=== PATIENT | female | born 1970 | race African-American/Black ===

== ENCOUNTER 2018-02-10 20:12 | Emergency (ER) | payer OTHER ==
[~2018-02-10] VITALS: Ht 162.6 cm; Wt 79.8 kg
[~2018-02-10 20:12] MED LIST: ALEVE220 M1 PO; ALKA-SELTZER P1 EA10; BACTRIM DS TAB1 EACH PO; CIPROFLOXACIN500 M1 PO; DIFLUCAN200 MG PO; FLAGYL500 MG PO; HYDROCHLOROTHIA25 M2 PO; IBUPROFEN 800800 MG PO; MACROBID 100 M100 M1 PO; MONISTAT 745 GM VG; NOHOMEMEDICATIONS; NORCO 5-325 TA1 EACH PO; OXYCODONE HCL 55 MG PO; PEPCID40 MG PO; PREDNISONE 20 M20 MG PO; PREDNISONE50 MG PO; PYRIDIUM200 MG PO; ZOCOR20 MG PO
[2018-02-10] MEDS ORDERED: HYDROCHLOROTHIA25 M1 PO (20:22)
[2018-02-10] MEDS ORDERED: TOBREX5 ML OPHTHALMIC (20:45)
== END 2018-02-10 20:58 | disposition home or self-care (01) ==
LOC: ER 20:12
DX: H10.32 Unspecified acute conjunctivitis, left eye (principal); I10 Essential (primary) hypertension; E78.00 Pure hypercholesterolemia, unspecified; Z86.19 Personal history of other infectious and parasitic diseases; Z87.891 Personal history of nicotine dependence

== ENCOUNTER 2018-04-17 17:14 | Emergency (ER) | payer OTHER ==
[~2018-04-17] VITALS: Ht 165.1 cm; Wt 72.6 kg
[~2018-04-17 17:14] MED LIST changes: +HYDROCHLOROTHIA25 M1 PO; +TOBREX5 ML OPHTHALMIC
[2018-04-17 18:52] LABS: ABSOLUTE NEUTROPHILS 4.8 thou/uL (1.4-8.2); BASOPHILS 0.6 % (0.0-2.0); EOSINOPHILS 1.8 % (0.0-3.0); HEMOGLOBIN 14.1 gm/dL (12.0-15.0); MCH 28.2 pg (26.0-34.0); MCHC 32.8 g/dL (28.0-37.0); MCV 85.7 fL (80.0-100.0); MONOCYTES 7.9 % (1.0-8.0); PLATELET COUNT 252 thou/uL (150-400); POLYS 51.7 % (36.0-66.0); RBC 5.01 mil/uL (4.20-5.00); RDW 14.2 % (10.5-14.5); WBC 9.3 thou/uL (4.0-11.0)
[2018-04-17 18:57] LABS: CALCIUM 9.3 mg/dL (8.5-10.1); POTASSIUM 3.9 mmol/L (3.5-5.1)
[2018-04-17 19:15] VITALS: BP 121/85
== END 2018-04-17 19:16 | disposition home or self-care (01) ==
LOC: ER 17:14
PROVIDERS: Physician Assistant
DX: K64.9 Unspecified hemorrhoids (principal); N92.6 Irregular menstruation, unspecified; K62.5 Hemorrhage of anus and rectum; I10 Essential (primary) hypertension; E78.00 Pure hypercholesterolemia, unspecified; Z87.891 Personal history of nicotine dependence

== ENCOUNTER 2019-03-04 15:17 | Emergency (ER) | payer OTHER ==
[~2019-03-04] VITALS: Ht 162.6 cm; Wt 79.4 kg
[2019-03-04 16:25] LABS: URINE BILIRUBIN NEGATIVE (Negative); URINE BLOOD NEGATIVE (Negative); URINE CLARITY CLEAR; URINE COLOR YELLOW; URINE GLUCOSE-RANDOM* NEGATIVE (Negative); URINE KETONES TRACE (Negative); URINE LEUKOCYTES-REFLEX NEGATIVE (Negative); URINE NITRITE-REFLEX NEGATIVE (Negative); URINE PROTEIN (DIPSTICK) 2+ (Negative); URINE SPECIFIC GRAVITY >= 1.030 (1.005-1.035); URINE UROBILINOGEN 0.2 E.U./dl (0.2-1.0)
[2019-03-04 16:37] LABS: CASTS None Seen /LPF (None Seen); CRYSTALS None Seen /LPF (None Seen); SQUAMOUS 4-10 Moderate /LPF (0-3)
[2019-03-04 16:38] LABS: BACTERIA-REFLEX 1-9 Few /HPF (None Seen); URINE RBC 0-2 Rare /HPF (0-2); URINE WBC-REFLEX 0-5 Rare /HPF (0-5)
[2019-03-04 16:42] LABS: ABSOLUTE NEUTROPHILS 9.4 thou/uL (1.4-8.2); BASOPHILS 0.4 % (0.0-2.0); EOSINOPHILS 0.8 % (0.0-3.0); HEMATOCRIT 43.6 % (37.0-47.0); HEMOGLOBIN 14.5 gm/dL (12.0-15.0); LYMPHOCYTES 19.7 % (24.0-44.0); MCHC 33.2 g/dL (28.0-37.0); MCV 84.1 fL (80.0-100.0); MONOCYTES 7.7 % (1.0-8.0); PLATELET COUNT 223 thou/uL (150-400); POLYS 71.4 % (36.0-66.0); RBC 5.19 mil/uL (4.20-5.00); RDW 14.9 % (10.5-14.5); WBC 13.1 thou/uL (4.0-11.0)
[2019-03-04 16:49] LABS: CALCIUM 9.3 mg/dL (8.5-10.1); CREATININE 1.1 mg/dL (0.6-1.0); POTASSIUM 3.5 mmol/L (3.5-5.1)
[2019-03-04 16:55] LABS: ALBUMIN 3.6 g/dL (3.4-5.0); TOTAL BILIRUBIN 0.6 mg/dL (<0.1-1.0); TOTAL PROTEIN 7.6 g/dL (6.4-8.2)
[2019-03-04] MEDS ORDERED: BENTYL 20 MG TA20 M1 PO (18:34)
[2019-03-04] MEDS ORDERED: NORCO 5-325 TA1 EACH PO (18:34)
[2019-03-04 18:49] VITALS: BP 120/80
== END 2019-03-04 18:52 | disposition home or self-care (01) ==
LOC: ER 15:17
PROVIDERS: Emergency Medicine
DX: K52.9 Noninfective gastroenteritis and colitis, unspecified (principal); I10 Essential (primary) hypertension; E78.00 Pure hypercholesterolemia, unspecified; B19.10 Unspecified viral hepatitis B without hepatic coma; Z87.891 Personal history of nicotine dependence

== ENCOUNTER 2019-04-15 15:44 | Emergency (ER) | payer OTHER ==
[~2019-04-15] VITALS: Ht 162.6 cm; Wt 72.6 kg
[~2019-04-15 15:44] MED LIST changes: +BENTYL 20 MG TA20 M1 PO
[2019-04-15] MEDS ORDERED: NORCO 5-325 TA1 EACH PO (17:59)
[2019-04-15 18:12] VITALS: BP 151/88
[2019-04-15] MEDS ORDERED: IBUPROFEN 800800 M1 PO (18:12)
== END 2019-04-15 18:13 | disposition home or self-care (01) ==
LOC: ER 15:44
DX: S05.11XA Contusion of eyeball and orbital tissues, right eye, initial encounter (principal); H11.31 Conjunctival hemorrhage, right eye; I10 Essential (primary) hypertension; E78.00 Pure hypercholesterolemia, unspecified; Z87.891 Personal history of nicotine dependence; Y04.0XXA Assault by unarmed brawl or fight, initial encounter; Y93.89 Activity, other specified; Y92.89 Other specified places as the place of occurrence of the external cause; Y99.8 Other external cause status

== ENCOUNTER 2019-11-17 23:57 | Emergency (ER) | payer OTHER ==
[~2019-11-17] VITALS: Ht 162.6 cm; Wt 79.4 kg
[~2019-11-17 23:57] MED LIST changes: +IBUPROFEN 800800 M1 PO
[2019-11-18 00:57] LABS: HEMATOCRIT 42.4 % (37.0-47.0); HEMOGLOBIN 13.5 gm/dL (12.0-15.0); MCH 26.8 pg (26.0-34.0); MCHC 31.8 g/dL (28.0-37.0); MCV 84.3 fL (80.0-100.0); PLATELET COUNT 263 thou/uL (150-400); RBC 5.03 mil/uL (4.20-5.00); RDW 14.1 % (10.5-14.5); WBC 17.3 thou/uL (4.0-11.0)
[2019-11-18 01:02] LABS: CALCIUM 8.7 mg/dL (8.5-10.1); POTASSIUM 4.1 mmol/L (3.5-5.1)
[2019-11-18] MEDS ORDERED: AMOXICILLIN875 MG PO (02:42)
[2019-11-18 02:45] LABS: ABSOLUTE NEUTROPHILS 13.1 thou/uL (1.4-8.2)
[2019-11-18 03:48] VITALS: BP 127/68
== END 2019-11-18 03:05 | disposition home or self-care (01) ==
LOC: ER 23:57
PROVIDERS: Emergency Medicine
DX: H66.92 Otitis media, unspecified, left ear (principal); I10 Essential (primary) hypertension; E78.00 Pure hypercholesterolemia, unspecified; R19.7 Diarrhea, unspecified; Z87.891 Personal history of nicotine dependence

== ENCOUNTER 2020-12-01 17:52 | Emergency (ER) | payer OTHER ==
[~2020-12-01] VITALS: Ht 162.6 cm; Wt 80.7 kg
[~2020-12-01 17:52] MED LIST changes: +AMOXICILLIN875 MG PO
[2020-12-01 17:58] VITALS: BP 149/87
[2020-12-01] MEDS ORDERED: IBUPROFEN 800800 M1 PO (19:23)
[2020-12-01] MEDS ORDERED: CORTISPORIN OTI10 M2 OTIC (19:23)
== END 2020-12-01 19:42 | disposition home or self-care (01) ==
LOC: ER 17:52
DX: N89.8 Other specified noninflammatory disorders of vagina (principal); L73.8 Other specified follicular disorders; H60.92 Unspecified otitis externa, left ear; I10 Essential (primary) hypertension; E78.00 Pure hypercholesterolemia, unspecified; Z87.891 Personal history of nicotine dependence

== ENCOUNTER 2021-04-14 17:01 | Emergency (ER) | payer OTHER ==
[~2021-04-14] VITALS: Ht 162.6 cm; Wt 78.9 kg
[~2021-04-14 17:01] MED LIST changes: +CORTISPORIN OTI10 M2 OTIC
[2021-04-14] MEDS ORDERED: JANUMET XR 50-1 EACH PO (17:13)
[2021-04-14 17:45] LABS: ABSOLUTE NEUTROPHILS 8.2 thou/uL (1.4-8.2); BASOPHILS 0.8 % (0.0-2.0); EOSINOPHILS 1.1 % (0.0-3.0); HEMATOCRIT 45.2 % (37.0-47.0); HEMOGLOBIN 14.5 gm/dL (12.0-15.0); LYMPHOCYTES 25.8 % (24.0-44.0); MCH 27.5 pg (26.0-34.0); MCHC 32.2 g/dL (28.0-37.0); MCV 85.3 fL (80.0-100.0); MONOCYTES 9.1 % (1.0-8.0); PLATELET COUNT 217 thou/uL (150-400); POLYS 63.2 % (36.0-66.0); RBC 5.29 mil/uL (4.20-5.00); RDW 14.3 % (10.5-14.5)
[2021-04-14 17:49] LABS: URINE BILIRUBIN NEGATIVE (Negative); URINE BLOOD NEGATIVE (Negative); URINE CLARITY CLEAR; URINE COLOR YELLOW; URINE GLUCOSE-RANDOM* 3+ (Negative); URINE KETONES TRACE (Negative); URINE LEUKOCYTES-REFLEX NEGATIVE (Negative); URINE NITRITE-REFLEX NEGATIVE (Negative); URINE PROTEIN (DIPSTICK) 1+ (Negative); URINE SPECIFIC GRAVITY 1.025 (1.005-1.035)
[2021-04-14 17:51] LABS: ANION GAP 8 mmol/L (7-16); BUN 13 mg/dL (7-18); CALCIUM 8.7 mg/dL (8.5-10.1); CHLORIDE 105 mmol/L (98-107); CO2 26 mmol/L (21-32); GLUCOSE 209 mg/dL (74-106); SODIUM 139 mmol/L (136-145)
[2021-04-14 17:57] LABS: ALBUMIN 3.4 g/dL (3.4-5.0); DIRECT BILIRUBIN < 0.1 mg/dL (<0.1-0.2); LIPASE 123 U/L (73-393); SGOT 23 U/L (15-37); SGPT 27 U/L (14-59); TOTAL BILIRUBIN 0.5 mg/dL (0.2-1.0); TOTAL PROTEIN 7.1 g/dL (6.4-8.2)
[2021-04-14 18:00] LABS: CASTS None Seen /LPF (None Seen); CRYSTALS None Seen /LPF (None Seen); SQUAMOUS 4-10 Moderate /LPF (0-3); URINE RBC None Seen /HPF (NONE SEEN); URINE WBC-REFLEX 0-5 Rare /HPF (0-5)
[2021-04-14 18:01] LABS: BACTERIA-REFLEX 1-9 Few /HPF (None Seen)
[2021-04-14 18:56] VITALS: BP 0/0
== END 2021-04-14 19:01 | disposition left against medical advice (07) ==
LOC: ER 17:01
PROVIDERS: Nurse Practitioner
DX: E11.65 Type 2 diabetes mellitus with hyperglycemia (principal); F17.210 Nicotine dependence, cigarettes, uncomplicated; I10 Essential (primary) hypertension; E78.00 Pure hypercholesterolemia, unspecified

== ENCOUNTER 2021-10-06 18:19 | Emergency (ER) | payer OTHER ==
[~2021-10-06] VITALS: Ht 160 cm; Wt 77.1 kg
[~2021-10-06 18:19] MED LIST changes: +JANUMET XR 50-1 EACH PO
[2021-10-06] MEDS ORDERED: LANTUS SOL100 UNIT/1 SUBQ (20:46)
[2021-10-06] MEDS ORDERED: TESSALON PERLE100 MG PO (21:09)
[2021-10-06] MEDS ORDERED: VANACOF DM LIQ240 ML PO (21:09)
[2021-10-06] MEDS ORDERED: TYLENOL325 M1 PO (21:09)
[2021-10-06] MEDS ORDERED: NAPROSYN500 MG PO (21:09)
[2021-10-06 21:29] VITALS: BP 120/82
== END 2021-10-06 21:30 | disposition home or self-care (01) ==
LOC: ER 18:19
DX: U07.1 COVID-19 (principal); J10.1 Influenza due to other identified influenza virus with other respiratory manifestations; I10 Essential (primary) hypertension; E78.00 Pure hypercholesterolemia, unspecified; E11.9 Type 2 diabetes mellitus without complications; Z86.718 Personal history of other venous thrombosis and embolism; Z79.4 Long term (current) use of insulin; Z20.822 Contact with and (suspected) exposure to COVID-19